=== PATIENT | female | born 1995 | race Caucasian/White ===

== ENCOUNTER 2017-07-27 22:31 | Emergency (ER) | payer OTHER | END 2017-07-27 23:57 | disposition home or self-care (01) | LOC: SCSER 22:31 | DX: J11.1 Influenza due to unidentified influenza virus with other respiratory manifestations (principal); F17.210 Nicotine dependence, cigarettes, uncomplicated; F41.9 Anxiety disorder, unspecified | CPT/HCPCS: 99283 ==

== ENCOUNTER 2018-02-19 21:54 | Emergency (ER) | payer OTHER | END 2018-02-19 23:00 | disposition home or self-care (01) | LOC: SCSER 21:54 | DX: J02.9 Acute pharyngitis, unspecified (principal); F41.9 Anxiety disorder, unspecified; F17.210 Nicotine dependence, cigarettes, uncomplicated; N83.209 Unspecified ovarian cyst, unspecified side | CPT/HCPCS: 87081; 87430; 99283 ==

== ENCOUNTER 2018-07-18 20:10 | Emergency (ER) | payer OTHER ==
[2018-07-18] MEDS ORDERED: Dexamethasone 10 MG/ML VIAL ONE (20:43)
[2018-07-18] MEDS ORDERED: Ibuprofen 200 MG TAB ONE (20:43)
== END 2018-07-18 21:09 | disposition home or self-care (01) ==
LOC: SCSER 20:10
DX: J02.9 Acute pharyngitis, unspecified (principal); F17.210 Nicotine dependence, cigarettes, uncomplicated
CPT/HCPCS: 96372; J1100

== ENCOUNTER 2018-09-26 01:03 | Emergency (ER) | payer OTHER | END 2018-09-26 02:05 | disposition home or self-care (01) | LOC: ERS 01:03 | DX: K42.9 Umbilical hernia without obstruction or gangrene (principal); F41.9 Anxiety disorder, unspecified; F32.9 Major depressive disorder, single episode, unspecified; F17.210 Nicotine dependence, cigarettes, uncomplicated; Z79.899 Other long term (current) drug therapy | CPT/HCPCS: 99283 ==

== ENCOUNTER 2018-12-09 12:22 | Emergency (ER) | payer OTHER | END 2018-12-09 13:05 | disposition home or self-care (01) | LOC: SCSER 12:22 | DX: J06.9 Acute upper respiratory infection, unspecified (principal); F17.210 Nicotine dependence, cigarettes, uncomplicated; Z71.6 Tobacco abuse counseling | CPT/HCPCS: 87081; 87430; 87804; 99406 ==

== ENCOUNTER 2019-02-03 10:43 | Day surgery (SDC) | payer OTHER ==
[2019-02-02 08:50] VITALS: BMI 34.7
[2019-02-03] MEDS ORDERED: Bupivacaine/Epinephrine 0.25% 30 ML VIAL ONE (11:42)
[2019-02-03] MEDS ORDERED: Ketorolac Tromethamine 30 MG/ML VIAL ONE (11:45)
[2019-02-03] MEDS ORDERED: ceFAZolin Sodium (SDC) 2 GM/100 ML BAG ONE (11:45)
[2019-02-03 11:46] LABS: #Basophils 0.1 thou/uL (0.0-0.2); #Eosinphils 0.3 thou/uL (0.0-0.7); #Lymphocytes 2.8 thou/uL (1.20-3.40); #Monocytes 0.4 thou/uL (0.11-0.59); #Neutrophils 2.6 thou/uL (1.40-6.50); %Basophils 1.2 % (0.0-1.0); %Eosinophils 4.4 % (0.0-10.0); %Lymphocytes 45.6 % (21.0-51.0); %Monocytes 6.7 % (0.0-10.0); %Neutrophils 42.1 % (42.0-75.0); Hemoglobin 13.4 g/dL (12.0-16.0); Mean Corpuscular HGB CONC 33.9 g/dL (32.0-36.0); Mean Corpuscular Hemoglobin 30.2 pg (27.0-31.0); Mean Corpuscular Volume 89.1 fL (78.0-98.0); Mean Platelet Volume 6.4 fL (7.4-10.4); Platelet Count 338 thou/uL (130-400); RBC Distribution Width 12.2 % (11.5-14.5); Red Blood Cell (RBC) Count 4.44 mill/uL (4.20-5.40); White Blood Cell (WBC) Count 6.1 thou/uL (4.8-10.8)
[2019-02-03] MEDS ORDERED: Fentanyl 100 MCG/2 ML VIAL ONE ×2 (11:46→14:00)
[2019-02-03 12:00] LABS: BHCG - Serum Negative (NEGATIVE); Pregs Control Background? CLEAR/WHITE (CLR/WHITE); Pregs Control Bar Appear? YES (CONTROL BAR)
[2019-02-03] MEDS ORDERED: Midazolam HCl 2 mg/2 ml Vial ONE (12:02)
[2019-02-03 12:06] LABS: Anion Gap 12 mmol/L (10-20); BUN (Urea Nitrogen) 17 mg/dL (7.0-18.7); Calc. Creatinine Clearance 154 mL/min (70-130); Calcium 9.9 mg/dL (7.8-10.44); Carbon Dioxide 24 mmol/L (22-29); Chloride 106 mmol/L (98-107); Estimated GFR-MDRD Greater than 90; Glucose 83 mg/dL (70-105); Potassium 3.7 mmol/L (3.5-5.1); Sodium 138 mmol/L (136-145)
[2019-02-03] MEDS ORDERED: Meperidine HCl/PF 25 MG/ML VIAL ONE ×2 (12:28→13:51)
[2019-02-03] MEDS ORDERED: HYDROcodone/Acetaminophen 5/325 mg Tablet ONE (15:30)
[2019-02-03] MEDS ORDERED: Ondansetron PF 4 MG/2 ML Vial ONE (15:36)
[2019-02-03] MEDS ORDERED: PROPOFOL 200 MG/20 ML VIAL ONE (15:36)
[2019-02-03] MEDS ORDERED: Rocuronium Bromide 10 MG/ML (10ML VIAL) ONE (15:36)
--- NOTE | 2019-02-04 08:39 | OP ---
DATE OF PROCEDURE: 02/03/2019 PREOPERATIVE DIAGNOSIS: Ventral supraumbilical hernia. POSTOPERATIVE DIAGNOSIS: Ventral supraumbilical hernia. PROCEDURES PERFORMED: Repair of supraumbilical ventral hernia with mesh using 4.3-cm Ventralex mesh patch. ANESTHESIA: General endotracheal. INDICATIONS FOR PROCEDURE: The patient is a 23-year-old obese white female. She presents with a palpable symptomatic mass several centimeters superior to her umbilicus. She was taken to the operative room at this time for repair of this hernia. DESCRIPTION OF OPERATION: Informed consent was obtained. The patient was taken to the operating room, where general anesthesia was obtained with the patient in supine position. Abdomen was prepped with ChloraPrep and draped in sterile fashion. Local anesthetic was infiltrated using 0.25% Marcaine with epinephrine. A vertical midline incision was created over the palpable mass. Dissection was carried through skin and subcutaneous tissue, down on to the hernia sac. This was dissected circumferentially down to its base at the fascia. It was circumscribed at its base. The herniated fatty tissue was transected with electrocautery and passed off the field. The remaining fatty tissue, which appeared to be primarily preperitoneal, was reduced. The defect was a little over a cm in diameter. I bluntly dissected the preperitoneal space. A 4.3-cm Ventralex mesh patch was plastered into the preperitoneal space and pulled snugly against the posterior aspect of the fascia. The mesh tails were secured to the anterior aspect of the fascia on the right and left sides using single interrupted sutures of 0 Prolene. The superior and inferior aspects were closed with additional 0 Prolene suture and secured to the anterior mesh leaflet. Additional local anesthetic was infiltrated. The wound was then closed in layers with 3-0 Vicryl to close the space. The superficial tissue was closed with 3-0 and 4-0 Monocryl. Dermabond was placed externally. There were no complications. The patient tolerated the procedure well and was taken to Recovery in stable condition. Job ID: [id number]
== END 2019-02-03 15:50 | disposition home or self-care (01) ==
LOC: SDC 10:43
PROVIDERS: ATTEND Specialist
PROC: 0WUF0JZ Supplement Abdominal Wall with Synthetic Substitute, Open Approach (ICD-10-PCS; principal; 2019-02-03)
DX: K43.9 Ventral hernia without obstruction or gangrene (principal); F17.210 Nicotine dependence, cigarettes, uncomplicated; F41.9 Anxiety disorder, unspecified; E66.9 Obesity, unspecified; Z68.34 Body mass index [BMI] 34.0-34.9, adult
CPT/HCPCS: 80048; 84703; 85025; J0131; J0690; J1885; J2175; J2250; J2405; J2704; J3010

== ENCOUNTER 2019-08-17 19:08 | Emergency (ER) | payer OTHER, SELFPAY ==
[2019-08-17] MEDS ORDERED: Fluorescein Opthalmic Strip ONE (20:41)
[2019-08-17] MEDS ORDERED: Proparacaine 0.5% Opth 15 ML BOT ONE (20:41)
== END 2019-08-17 21:03 | disposition home or self-care (01) ==
LOC: ERS 19:08
DX: H10.212 Acute toxic conjunctivitis, left eye (principal); H18.822 Corneal disorder due to contact lens, left eye; T49.5X5A Adverse effect of ophthalmological drugs and preparations, initial encounter; F32.9 Major depressive disorder, single episode, unspecified; F41.9 Anxiety disorder, unspecified; F17.210 Nicotine dependence, cigarettes, uncomplicated
CPT/HCPCS: 99283